=== PATIENT | female | born 1995 | race African-American/Black ===

== ENCOUNTER 2018-04-26 20:59 | Emergency (ER) | payer OTHER ==
[2018-04-26] MEDS ORDERED: KETOROLAC 60 MG/2 ML VIAL IVP STA (21:20)
[2018-04-26] MEDS ORDERED: fentaNYL 100 MCG/2 ML VIAL IVP STA (21:20)
--- NOTE | 2018-04-26 21:23 | ED Physician Documentation ---
PD HPI ABD PAIN - Stated complaint Stated Complaint: ABD/BACK PX - Chief complaint Chief Complaint: Abd Pain - History obtained from History obtained from: Patient - History of Present Illness Timing - onset: How many days ago (4) Timing - duration: Days (4) Timing - details: Still present Quality: Pain Location: LLQ Radiation: Left flank Worsened by: Eating Associated symptoms: Diarrhea Similar symptoms before: Has not had sx before - Additional information Additional information: The patient is a 23-year-old female who presents with left lower quadrant abd ominal pain radiating to the left flank. Her symptoms started 4 days ago and became much worse last night. She denies fever, nausea, vomiting, or dysuria. She has had diarrhea consisting of loose stools for the past 2 days. Her pain is worse with eating. Her last menstrual period was several months ago; she is on Nexplanon. She denies history of similar symptoms in the past. Review of Systems Constitutional: denies: Fever Nose: denies: Congestion Throat: denies: Sore throat Cardiac: denies: Chest pain / pressure Respiratory: denies: Dyspnea, Cough GI: reports: Abdominal Pain. denies: Nausea, Vomiting : denies: Dysuria Skin: denies: Rash Musculoskeletal: reports: Back pain (left flank) Neurologic: denies: Headache PD PAST MEDICAL HISTORY - Past Medical History Endocrine/Autoimmune: None - Present Medications Home Medications: Ambulatory Orders Medication Instructions Recorded Confirmed Hydrocodone/Acetaminophen 1 each PO BID PRN #14 tablet 04/26/18 [Hydrocodon-Acetaminophn 10-325] - Allergies Allergies/Adverse Reactions: Allergies Allergy/AdvReac Type Severity Reaction Status Date / Time No Known Drug Allergies Allergy Verified 04/26/18 21:06 PD ED PE NORMAL - Vitals Vital signs reviewed: Yes (normal) - General General: Alert and oriented X 3, Well developed/nourished - HEENT HEENT: Atraumatic, Moist mucous membranes - Neck Neck: No adenopathy - Cardiac Cardiac: RRR - Respiratory Respiratory: No respiratory distress, Clear bilaterally - Abdomen Abdomen: Normal bowel sounds, Soft, No organomegaly, Other (Tenderness to palpation of the left abdomen, without rebound or guarding.) - Back Back: No spinal TTP, Other (Left CVA tenderness to palpation.) - Derm Derm: No rash - Extremities Extremities: No edema, No calf tenderness / cord - Neuro Neuro: Alert and oriented X 3, Normal speech Results - Vitals Vitals: Vital Signs - 24 hr 04/26/18 04/26/18 04/26/18 21:02 22:16 22:54 Temperature 37.0 C Heart Rate 70 77 55 L Respiratory 18 16 Rate Blood Pressure 110/72 99/60 O2 Saturation 100 100 100 Oxygen O2 Source Room air - Labs Labs: Laboratory Tests 04/26/18 04/26/18 04/26/18 21:22 21:31 21:31 WBC 8.0 RBC 4.16 L Hgb 12.3 Hct 36.3 L MCV 87.2 MCH 29.5 MCHC 33.8 RDW 11.9 L Plt Count 165 MPV 8.5 Neut # (Auto) 4.7 Lymph # (Auto) 2.6 [place]es # (Auto) 0.7 Eos # (Auto) 0.0 Baso # (Auto) 0.0 Absolute Nucleated RBC 0.00 Nucleated RBC % 0.0 Sodium 135 Potassium 3.0 L Chloride 105 Carbon Dioxide 26 Anion Gap 4.0 L BUN 10 Creatinine 0.8 Estimated GFR (MDRD) 106 Glucose 88 Calcium 8.5 Total Bilirubin 0.6 AST 18 ALT 15 Alkaline Phosphatase 52 Total Protein 6.3 L Albumin 4.0 Globulin 2.3 Albumin/Globulin Ratio 1.7 Lipase 29 Urine Color YELLOW Urine Clarity CLEAR Urine pH 7.5 Ur Specific [place] 1.015 Urine Protein NEGATIVE Urine Glucose (UA) NEGATIVE Urine Ketones NEGATIVE Urine Occult Blood NEGATIVE Urine Nitrite NEGATIVE Urine Bilirubin NEGATIVE Urine Urobilinogen 0.2 (NORMAL) Ur Leukocyte Esterase NEGATIVE Ur Microscopic Review NOT INDICATED Urine Culture Comments NOT INDICATED Urine HCG, Qual NEGATIVE - Rads (name of study) CT abd/pelvis Radiology: Prelim report reviewed, EMP read contemporaneously, See rad report (1)No urolithiasis seen. 2) Suspect 3.5 cm left ovarian cyst.) PD MEDICAL DECISION MAKING - ED course Complexity details: reviewed results, re-evaluated patient, considered differential, d/w patient, d/w family ED course: The patient's presentation is most consistent with left ovarian cyst. The p ossibility of ureterolithiasis was considered, but urinalysis reveals no hematuria, and CT scan reveals no evidence of ureterolithiasis. CT scan does reveal 3.5 cm left ovarian cyst. There is no evidence to suggest urinary tract infection or pyelonephritis, and test is negative. Treatment in the emergency department included administration of fentanyl 50 mcg IV and Toradol 30 mg IV. This improved the patient's pain. I discussed with her and her the diagnosis, symptomatic treatment and outpatient follow- up, as well as potentially worrisome signs or symptoms that should prompt reevaluation in the emergency department. Departure - Departure Disposition: 01 Home, Self Care Clinical Impression: Left ovarian cyst Condition: Stable Instructions: ED Cyst Ovarian Follow-Up: SAMIRA Edmondson [Provider Group] Prescriptions: Hydrocodone/Acetaminophen [Hydrocodon-Acetaminophn 10-325] 1 each PO BID PRN #14 tablet PRN Reason: Pain Comments: You can use ibuprofen, up to 600 mg 3 times daily for its anti-inflammatory effect. You can use Vicodin as prescribed as needed for pain. 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 Call to schedule appointment. Return to the emergency department if you develop increasing abdominal pain, lightheadedness, or otherwise worsening symptoms. Forms: Activity restrictions Discharge Date/Time: 04/26/18 23:11
[2018-04-26 21:26] LABS: BILIRUBIN,URINE NEGATIVE (NEGATIVE); GLUCOSE, URINE (UA) NEGATIVE (NEGATIVE); KETONES,URINE (UA) NEGATIVE (NEGATIVE); LEUKOCYTE ESTERASE, URINE NEGATIVE (NEGATIVE); NITRITE,URINE NEGATIVE (NEGATIVE); OCCULT BLOOD,URINE NEGATIVE (NEGATIVE); PH,URINE 7.5 PH (5.0-7.5); PROTEIN,URINE NEGATIVE (NEGATIVE); UROBILINOGEN,URINE 0.2 (NORMAL) E.U./dL (NORMAL)
[2018-04-26 21:29] LABS: CLARITY,URINE CLEAR (CLEAR); HCG UR QUAL NEGATIVE
[2018-04-26 21:34] LABS: BASOPHILS % (AUTO) 0.3 %; EOSINOPHILS % (AUTO) 0.5 %; HGB - HEMOGLOBIN 12.3 g/dL (12.0-16.0); LYMPHOCYTES # (AUTO) 2.6 10^3/uL (1.5-3.5); MEAN CORPUSCULAR HEMOGLOBIN 29.5 pg (27.0-31.0); MEAN CORPUSCULAR HGB CONC 33.8 g/dL (32.0-36.0); MEAN CORPUSCULAR VOLUME 87.2 fL (81.0-99.0); MEAN PLATELET VOLUME 8.5 fL (7.9-10.8); MONOCYTES # (AUTO) 0.7 10^3/uL (0.0-1.0); MONOCYTES % (AUTO) 8.7 %; NEUTROPHILS # (AUTO) 4.7 10^3/uL (1.5-6.6); NEUTROPHILS % (AUTO) 58.5 %; PLT - PLATELET COUNT 165 10^3/uL (130-450); RED BLOOD COUNT 4.16 10^6/uL (4.20-5.40); RED CELL DISTRIBUTION WIDTH 11.9 % (12.0-15.0)
[2018-04-26 21:48] LABS: ALBUMIN/GLOBULIN RATIO 1.7 (1.0-2.2); BILIRUBIN,TOTAL 0.6 mg/dL (0.2-1.0); CALCIUM 8.5 mg/dL (8.5-10.3); CREATININE 0.8 mg/dL (0.4-1.0); TOTAL PROTEIN 6.3 g/dL (6.7-8.2)
--- NOTE | 2018-04-26 22:32 | CT Report ---
Reason: left flank pain Procedure Date: 04/26/2018 Accession Number: [id number] / [id number] Procedure: CT - Abdomen/Pelvis W/O CPT Code: FULL RESULT: EXAM: CT ABDOMEN AND PELVIS (CT KUB) EXAM DATE: 04/26/2018 10:22 PM. CLINICAL HISTORY: Left flank pain. COMPARISONS: None. TECHNIQUE: Routine axial helical CT imaging was performed through the abdomen and pelvis without IV contrast. Reconstructions: Coronal and sagittal. In accordance with CT protocol optimization, one or more of the following dose reduction techniques were utilized for this exam: automated exposure control, adjustment of mA and/or KV based on patient size, or use of iterative reconstructive technique. FINDINGS: Lung Bases: Unremarkable. Right Kidney/Ureter: No stones, hydronephrosis, or hydroureter. No perinephric fat stranding. Left Kidney/Ureter: No stones, hydronephrosis, or hydroureter. No perinephric fat stranding. Other Solid Organs: Noncontrast images of the solid organs are grossly unremarkable. Gallbladder/Bile Ducts: Unremarkable. Peritoneal Cavity: No free fluid, free air or joy adenopathy. Bowel is grossly unremarkable. Pelvic Organs: Probable 3.5 cm left ovarian cyst. Visualized pelvic organs are otherwise unremarkable. Vasculature: Unremarkable. Other: None. IMPRESSION: 1. No urolithiasis seen. 2. Suspect 3.5 cm left ovarian cyst. [facility]
[2018-04-26 22:55] VITALS: BP 99/60
== END 2018-04-26 23:11 | disposition home or self-care (01) ==
LOC: ED 20:59
DX: N83.202 Unspecified ovarian cyst, left side (principal)
CPT/HCPCS: 36415; 74176; 80053; 81001; 81003; 81025; 83690; 85025; 87086; 96374; 96375; 99283